=== PATIENT | female | born 1975 | race Caucasian/White ===

== ENCOUNTER 2017-10-03 14:41 | Emergency (ER) | payer MEDICAID ==
[2017-10-03 15:57] LABS: BASOPHILS # (AUTO) 0.1 10^3/uL (0.0-0.1); BASOPHILS % (AUTO) 0.7 %; EOSINOPHILS # (AUTO) 0.2 10^3/uL (0.0-0.7); HCT - HEMATOCRIT 44.8 % (37.0-47.0); HGB - HEMOGLOBIN 15.1 g/dL (12.0-16.0); LYMPHOCYTES # (AUTO) 2.1 10^3/uL (1.5-3.5); LYMPHOCYTES % (AUTO) 22.9 %; MEAN CORPUSCULAR HEMOGLOBIN 31.1 pg (27.0-31.0); MEAN CORPUSCULAR HGB CONC 33.7 g/dL (32.0-36.0); MEAN CORPUSCULAR VOLUME 92.3 fL (81.0-99.0); MEAN PLATELET VOLUME 7.8 fL (7.9-10.8); MONOCYTES # (AUTO) 0.4 10^3/uL (0.0-1.0); MONOCYTES % (AUTO) 4.7 %; NEUTROPHILS # (AUTO) 6.3 10^3/uL (1.5-6.6); NEUTROPHILS % (AUTO) 69.7 %; NUCLEATED RED BLOOD CELLS AUTO 0.1 /100WBC; RED BLOOD COUNT 4.85 10^6/uL (4.20-5.40); RED CELL DISTRIBUTION WIDTH 13.3 % (12.0-15.0)
[2017-10-03 17:44] VITALS: BP 136/83
--- NOTE | 2017-10-03 17:52 | Ultrasound Preliminary Report ---
Exam: US OB FIRST TRIMESTER IMPRESSION: 1. No intrauterine visualized by transvaginal ultrasound. Differential diagnosis would incl ude a normal early intrauterine which is too small to visualize, blighted ovum, and ectopic . [facility] SITE ID: [id number]
--- NOTE | 2017-10-03 17:55 | Ultrasound Report ---
EXAM: FIRST TRIMESTER OBSTETRIC ULTRASOUND (Less than 11 weeks) EXAM DATE: 10/03/2017 04:58 PM. CLINICAL HISTORY: 1 prior ectopic LMP 08/24 bleed R pain. LMP: 08/24/2017. COMPARISONS: None. TECHNIQUE: Transabdominal and transvaginal ultrasound examination with static image documentation. CLINICAL DATES: EGA 5 weeks 5 days with MARISOL 05/31/2018 based on LMP. ASSESSMENT: No intrauterine visualized. Endometrium thickness measures 7.9 mm. MATERNAL STRUCTURES: Uterus: Anteverted. Unremarkable. Cervix: Closed. Right Ovary/Adnexa: There is a follicle or cyst in right ovary measuring 1.9 x 1.5 x 1.7 cm.. The ov bart measures 4 x 2.5 x 2.7 cm, volume 14.1 cc. Left Ovary/Adnexa: Unremarkable. The ovary measures 2.7 x 1.9 x 2.2 cm, volume 5.9 cc. Free Fluid: None. Other: None. IMPRESSION: 1. No intrauterine visualized by transvaginal ultrasound. Differential diagnosis would incl ude a normal early intrauterine which is too small to visualize, blighted ovum, and ectopic . [facility] Referring Provider Line: [phone] SITE ID: [id number]
--- NOTE | 2017-10-03 18:02 | ED Physician Documentation ---
History of Present Illness - Stated complaint Stated Complaint: FEMALE - Chief complaint Chief Complaint: Abd Pain - Additonal information Additional information: hx from pt 42 y/o f one prior ectopic LMP 08/24 believes she is approx 4-6 weeks she has an OB at [place] she has had serial rising quants (67, 110, 236 and 500 today) at [place] - most recently earlier today she has had some midline and RLQ cramping and vaginal spotting concerned about ectopic Review of Systems Constitutional: denies: Fever Cardiac: denies: Chest pain / pressure Respiratory: denies: Dyspnea GI: reports: Abdominal Pain : reports: Vaginal bleeding, Now EGA Endocrine: denies: Easy bruising / bleeding Immunocompromised: denies: Immunocompromised PD PAST MEDICAL HISTORY - Past Medical History Past Medical History: Yes Cardiovascular: Murmur Respiratory: Asthma Neuro: None Endocrine/Autoimmune: None GI: Ulcers [employer]YLAND F[employer]ER: Ectopic , Ovarian cysts, Miscarriage(s) HEENT: None Psych: Anxiety Musculoskeletal: None Derm: None - Past Surgical History Past Surgical History: No - Present Medications Home Medications: Ambulatory Orders Medication Instructions Recorded Confirmed Pnv95/Ferrous Fumarate/FA 1 each PO DAILY 10/03/17 10/03/17 [ Tablet] - Allergies Allergies/Adverse Reactions: Allergies Allergy/AdvReac Type Severity Reaction Status Date / Time codeine Allergy Emesis Verified 10/03/17 14:59 morphine Allergy Emesis Verified 10/03/17 14:59 - Social History Does the pt smoke?: Yes Smoking Status: Current every day smoker Does the pt drink ETOH?: No Does the pt have substance abuse?: No - Immunizations Immunizations are current?: Yes PD ED PE NORMAL - Vitals Vital signs reviewed: Yes - Cardiac Cardiac: RRR - Respiratory Respiratory: No respiratory distress, Clear bilaterally - Abdomen Abdomen: Soft. No: Non tender (mild lower abd TTP mostly suprapubic, minimal RLQ pain) Results - Vitals Vitals: Vital Signs - 24 hr 10/03/17 10/03/17 10/03/17 14:55 16:34 17:41 Temperature 37.1 C 37.1 C 36.5 C Heart Rate 99 88 85 Respiratory 16 18 18 Rate Blood Pressure 144/89 H 124/69 136/83 H O2 Saturation 100 97 98 Oxygen O2 Source Room air - Labs Labs: Laboratory Tests 12/10/03/17 10/03/17 15:45 15:45 15:45 WBC 9.0 RBC 4.85 Hgb 15.1 Hct 44.8 MCV 92.3 MCH 31.1 H MCHC 33.7 RDW 13.3 Plt Count 336 MPV 7.8 L Neut # 6.3 Lymph # 2.1 [place] # 0.4 Eos # 0.2 Baso # 0.1 Absolute Nucleated RBC 0.01 Nucleated RBC % 0.1 HCG, Quant 554.31 Blood Type O POSITIVE - Rads (name of study) pelvic sono Radiology: See rad report (no IUP seen, ddx included normal early IUP to early to be visualized, blihgted ovum, miscarriage, ectopic) PD MEDICAL DECISION MAKING - ED course ED course: pt declined a pelvic exam pt understands sono non diagnostic and ectopic not yet ruled out and need for 48 -72 hr follow up - she has already called her OB at [place] and made a follow up appt/blood draw Tue and sono Departure - Departure Disposition: Home, Self Care Clinical Impression: Threatened miscarriage in early Condition: Good Instructions: ED Abdominal Pain Rule Out Ectopic, Bleeding Early Preg Follow-Up: Sobeida Betancourt MD [Physician No Access] - (Tuesday as scheduled) Comments: The quantatative HCG today here was 554 Your blood type is O + The ultrasound was non diagnostic which means we still do not know if you have a normal healthy but too early to be seen on ultrasound OR if you might be having a miscarriage OR if you could have another ectopic. Close follow up with recheck the HCG levels and another ultrasound is very important. Return to the ER if worse (feel faint, heavy bleeding, pain worsens etc)
== END 2017-10-03 18:28 | disposition home or self-care (01) ==
LOC: ED 14:41
DX: O20.0 Threatened abortion (principal); O99.331 Smoking (tobacco) complicating pregnancy, first trimester; Z3A.01 Less than 8 weeks gestation of pregnancy
CPT/HCPCS: 76801; 76817; 84702; 85025; 86900; 86901; 99283; 99284

== ENCOUNTER 2020-09-03 18:06 | Emergency (ER) | payer MEDICAID ==
--- NOTE | 2020-09-03 18:10 | ED Physician Documentation ---
PD HPI HEENT - Stated complaint Stated Complaint: MOUTH PX - History obtained from History obtained from: Patient - History of Present Illness Timing - onset: How many days ago (today) Timing - duration: Days (1) Timing - details: Gradual onset, Still present Location: Throat, Mouth (has been on abx for abscess/infection and is now having pain in mouth/throat. 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: Ectopic , Ovarian cysts, Miscarriage(s) HEENT: None Psych: Anxiety Musculoskeletal: None Derm: None - Past Surgical History Past Surgical History: No - Present Medications Home Medications: Ambulatory Orders Medication Instructions Recorded Confirmed Pnv No.95/Ferrous Fum/Folic AC 1 each PO DAILY 10/03/17 10/03/17 [ Tablet] Fluconazole [Diflucan] 150 mg PO Q3D #1 tablet 09/03/20 Lidocaine Viscous 2% [Xylocaine 5 ml PO Q4H PRN #100 ml 09/03/20 Viscous 2%] Nystatin [Mycostatin] 5 ml PO BID #50 ml 09/03/20 diphenhydrAMINE ELIXIR [Benadryl 12.5 mg PO Q6H PRN #240 ml 09/03/20 Elixir] - Allergies Allergies/Adverse Reactions: Allergies Allergy/AdvReac Type Severity Reaction Status Date / Time codeine Allergy Emesis Verified 09/03/20 18:13 morphine Allergy Emesis Verified 09/03/20 18:13 - Social History Does the pt smoke?: Yes Smoking Status: Current every day smoker Does the pt drink ETOH?: No Does the pt have substance abuse?: No - Immunizations Immunizations are current?: Yes PD ED PE NORMAL - Vitals Vital signs reviewed: Yes - General General: Alert and oriented X 3, Well developed/nourished, Other (seems uncomfortable with swallowing. ) - HEENT HEENT: Ears normal, Moist mucous membranes. No: Pharynx benign (patchy red mucosa without ulcerations. Noted on roof of mouth, cheeks, and back of throat. No edema. ) - Neck Neck: Supple, no meningeal sign, No adenopathy - Cardiac Cardiac: RRR, No murmur - Respiratory Respiratory: Clear bilaterally Results - Vitals Vitals: Vital Signs - 24 hr 09/03/20 18:13 Temperature 37.5 C Heart Rate 90 Respiratory 20 Rate Blood Pressure 139/108 H O2 Saturation 99 Oxygen O2 Source Room air PD MEDICAL DECISION MAKING - ED course Complexity details: considered differential (appearance is c/w thrush, though no exudate/whiteness. Can treat as thrush. Does not look like allergic reaction - l ips and buccal area normal. Would expect lips involvement and some edema with SJS/TEN. ), d/w patient Departure - Departure Disposition: 01 Home, Self Care Clinical Impression: Oral pain, Thrush of mouth and esophagus Condition: Stable Record reviewed to determine appropriate education?: Yes Instructions: ED Oral Infec Fungal Asya Ch Follow-Up: CYNTHIA ESCOBEDO ARNP [Primary Care Provider] - Prescriptions: diphenhydrAMINE ELIXIR [Benadryl Elixir] 12.5 mg PO Q6H PRN #240 ml PRN Reason: Pain Fluconazole [Diflucan] 150 mg PO Q3D #1 tablet Nystatin [Mycostatin] 5 ml PO BID #50 ml Lidocaine Viscous 2% [Xylocaine Viscous 2%] 5 ml PO Q4H PRN #100 ml PRN Reason: Pain Comments: Use the Diflucan (fluconazole) every 3 days for 2 more doses for the thrush. You can also use oral nystatin twice daily swish and swallow. For the discomfort you can use a combination of the viscous lidocaine with 5-10 mils of diphenhydramine and a little antacid if you like swish around and swallow to help with the symptoms in the mouth and throat. Be every 4-6 hours if needed. I would anticipate improvement over the next few days. Discharge Date/Time: 09/03/20 18:46
[2020-09-03 18:17] VITALS: BP 139/108
[2020-09-03] MEDS ORDERED: MAG HYDROX/AL HYDROX/SIMETH 30 ML UDC PO STA (18:30)
[2020-09-03] MEDS ORDERED: FLUCONAZOLE 100 MG TABLET PO STA (18:30)
[2020-09-03] MEDS ORDERED: LIDOCAINE VISCOUS 2% 15 ML UDC MM STA (18:30)
[2020-09-03] MEDS ORDERED: diphenhydrAMINE ELIXIR 25 MG/10 ML UDC PO STA (18:30)
== END 2020-09-03 18:46 | disposition home or self-care (01) ==
LOC: ED 18:06
DX: B37.0 Candidal stomatitis (principal); B37.81 Candidal esophagitis; F17.200 Nicotine dependence, unspecified, uncomplicated
CPT/HCPCS: 99283; 99284; A9270

== ENCOUNTER 2021-12-12 07:42 | Outpatient (CLI) | payer MEDICAID ==
--- NOTE | 2021-12-12 09:26 | Ultrasound Report ---
PROCEDURE: Abdomen Complete INDICATIONS: RIGHT UPPER QUAD PAIN TECHNIQUE: Real-time scanning was performed of the abdominal and retroperitoneal organs, with image documentatio n. COMPARISON: None. FINDINGS: Liver: The liver demonstrates prominent size at 20.6 cm. The liver demonstrates moderately increase d echogenicity, which limits ultrasound sensitivity for detection of masses. Gallbladder: Removed. Biliary ducts: Intrahepatic bile ducts are non-dilated. Extrahepatic bile duct caliber measures 9 m m. Normal is 6-7 mm or less in diameter, or 10 mm or less post-cholecystectomy. Pancreas: Visualized portions of the pancreas are sonographically normal. Spleen: Spleen is normal in size and homogeneous in echotexture. Kidneys: Kidneys are normal in size and echotexture. Right kidney measures 13 cm long; left kidney measures 11.5 cm long. No hydronephrosis. No solid masses. Within the left mid kidney, there is a 5 x 5 x 9 mm calcification seen. At the inferior pole of the r ight kidney there are simple appearing cyst seen that measure up to 1 cm. Aorta: Visualized aorta is normal in caliber at less than 3 cm. Iliacs: Proximal common iliac arteries are normal in caliber at less than 2.5 cm. IVC: Intrahepatic inferior vena cava is patent. Miscellaneous: No free abdominal fluid. IMPRESSION: Status post cholecystectomy, without moise biliary dilatation for a postcholecystectomy patient. Enlarged, fatty liver. Nonobstructing left-sided kidney stone, measuring up to 9 mm. Right renal cysts are incidentally noted. Reviewed by: Wild Goss MD on 12/12/2021 8:25 AM [facility] Approved by: Wild Goss MD on 12/12/2021 8:25 AM [facility] Station ID: [id number]
== END 2021-12-12 07:43 | disposition home or self-care (01) ==
LOC: DI 07:42
PROVIDERS: ATTEND Nurse Practitioner
DX: Z90.49 Acquired absence of other specified parts of digestive tract (principal); K76.0 Fatty (change of) liver, not elsewhere classified; N20.0 Calculus of kidney